=== PATIENT | female | born 1980 | race American Indian/Alaskan Native ===

== ENCOUNTER 2018-05-30 00:01 | Observation (INO) | payer OTHER ==
[2018-05-30 00:07] VITALS: BMI 31.9
--- NOTE | 2018-05-30 01:03 | ED PDOC ---
Arrival/HPI - General Historian: Patient - History of Present Illness Narrative History of Present Illness (Text): 05/30/18 01:37 37 y/o female with PMH of ovarian cysts, lap yady with stent placed presents to the ED with diffuse abdominal pain x6 days. Pain is sharp, 8/10, no radiation, no alleviating or worsening factors. Patient admits to one episode of non blood vomiting today and nausea. She reports not having bowel movement for 5 days in the setting of chronic constipation. She denied hematemesis, hematochezia, melena, fever, chills. Patient's menstrual period started today but denied any urinary symptoms. She denied chest pain, SOB, palpitations, muscle weaknes. Time/Duration: < week Symptom Onset: Gradual Symptom Course: Worsening Severity Level: 7 Context: Home <Eduard Shaw - Last Filed: 05/30/18 06:58> <Alejandro Quispe - Last Filed: 05/30/18 07:09> - General Chief Complaint: Abdominal Pain Time Seen by Provider: 05/30/18 00:24 Past Medical History - Provider Review Nursing Documentation Reviewed: Yes - Gastrointestinal Hx Gall Bladder Disease: Yes - Genitourinary/Gynecological Other/Comment: uterine fibroids and cysts - Psychiatric Hx Substance Use: No - Surgical History Hx Cholecystectomy: Yes - Anesthesia Hx Anesthesia: Yes Hx Anesthesia Reactions: No <Eduard Shaw - Last Filed: 05/30/18 06:58> Family/Social History - Physician Review Nursing Documentation Reviewed: Yes Family/Social History: No Known Family HX Smoking Status: Unknown If Ever Smoked Hx Alcohol Use: No Hx Substance Use: No <Eduard Shaw - Last Filed: 05/30/18 06:58> Allergies/Home Meds <Eduard Shaw - Last Filed: 05/30/18 06:58> <Alejandro Quispe - Last Filed: 05/30/18 07:09> Allergies/Adverse Reactions: Allergies No Known Allergies Allergy (Verified 05/30/18 00:07) Review of Systems - Review of Systems Constitutional: Normal Eyes: Normal ENT: Normal Respiratory: Normal. absent: SOB, Cough Cardiovascular: Normal Gastrointestinal: Normal, Abdominal Pain, Constipation, Nausea, Vomiting. absent: Diarrhea, Hematochezia, Hematemesis Genitourinary Female: Vaginal Bleeding (currently menstruating) Musculoskeletal: Normal Skin: Normal Neurological: Normal Endocrine: Normal Hemo/Lymphatic: Normal Psychiatric: Normal <Eduard Shaw - Last Filed: 05/30/18 06:58> Physical Exam Vital Signs Reviewed: Yes Vital Signs Temp Pulse Resp BP Pulse Ox 05/30/18 00:26 98.6 F 108 H 18 151/94 H 98 Temperature: Afebrile Blood Pressure: Hypertensive Pulse: Tachycardic Respiratory Rate: Normal Appearance: Positive for: Uncomfortable Pain Distress: Moderate Mental Status: Positive for: Alert and Oriented X 3 - Systems Exam Head: Present: Atraumatic, Normocephalic Pupils: Present: PERRL Extroacular Muscles: Present: EOMI Conjunctiva: Present: Normal Ears: Present: Normal Mouth: Present: Dry Pharnyx: Present: Normal Nose (Internal): Present: Normal Inspection Neck: Present: Normal Range of Motion Respiratory/Chest: Present: Clear to Auscultation, Good Air Exchange. No: Respiratory Distress, Wheezes, Rhonchi Cardiovascular: Present: Regular Rate and Rhythm, Normal S1, S2. No: Murmurs, Rub, Gallop Abdomen: Present: Tenderness, Distention, Guarding. No: Peritoneal Signs Upper Extremity: Present: Normal Inspection. No: Cyanosis, Edema Lower Extremity: Present: Normal Inspection. No: Edema Neurological: Present: GCS=15, CN II-XII Intact, Speech Normal Skin: Present: Warm, Normal Color. No: Rashes Psychiatric: Present: Alert, Oriented x 3, Anxious <Eduard Shaw - Last Filed: 05/30/18 06:58> Vital Signs Temp Pulse Resp BP Pulse Ox 05/30/18 00:26 98.6 F 108 H 18 151/94 H 98 <Alejandro Quispe - Last Filed: 05/30/18 07:09> Medical Decision Making ED Course and Treatment: Impression: Pt seen and evaluated with veterinary medical officer. Aware and agree with HPI, clinical findings, plan, and management. Pt, whose past medical history includes cholelithiasis, presented for upper abdominal pain. Plan: -- CT Abdomen and Pelvis -- EKG -- Labs, cardiac enzymes, lipase -- IV fluids -- Zofran -- Pepcid -- Toradol -- Reassess and disposition 05/30/18 07:08 Case endorsed to /pending response to treatment/reassess/final disposition - RAD Interpretation Radiology Orders: 05/30/18 01:09 ABDOMEN & PELVIS [ABD & PELVIS IV CONTRAST ONLY] [CT] Stat 05/30/18 01:41 ABD & PELVIS IV CONTRAST ONLY [CT] Stat - Medication Orders Current Medication Orders: Sodium Chloride (Sodium Chloride 0.9%) 1,000 mls @ 100 mls/hr IV .Q10H ONE Stop: 05/30/18 11:04 Discontinued Medications Ketorolac Tromethamine (Toradol) 30 mg IVP STAT STA Stop: 05/30/18 01:42 Metoclopramide HCl (Reglan) 10 mg IVP STAT STA Stop: 05/30/18 01:44 <Alejandro Quispe - Last Filed: 05/30/18 07:09> - PA / / Resident Statement MICHAEL has reviewed & agrees with the documentation as recorded. / has examined the patient and agrees with the treatment plan. <Alejandro Quispe - Last Filed: 05/30/18 07:09> Disposition/Present on Arrival - Present on Arrival Any Indicators Present on Arrival: No History of DVT/PE: No History of Uncontrolled Diabetes: No Urinary Catheter: No History of Decub. Ulcer: No History Surgical Site Infection Following: None - Disposition Have Diagnosis and Disposition been Completed?: Yes Patient Plan: Discharge <Eduard Shaw - Last Filed: 05/30/18 06:58> - Present on Arrival Any Indicators Present on Arrival: No - Disposition Have Diagnosis and Disposition been Completed?: No Disposition Time: 07:08 <Alejandro Quispe - Last Filed: 05/30/18 07:09> - Disposition Diagnosis: Chronic constipation, Abdominal pain Disposition: HOME/ ROUTINE Patient Problems: Current Active Problems Problem Status Onset Chronic constipation Acute Condition: STABLE Discharge Instructions (ExitCare): High Fiber Diet, Constipation, Adult (DC) Referrals: Janusz Chaudhari MD [Primary Care Provider] - Follow up with primary Forms: [employer] (Lebanese)
[2018-05-30] MEDS ORDERED: Sodium Chloride 0.9% 1,000 ML IV ONE (01:05)
[2018-05-30 01:56] LABS: URINE BILIRUBIN NEGATIVE (NEGATIVE); URINE BLOOD LARGE (NEGATIVE); URINE GLUCOSE (UA) NEGATIVE (NEGATIVE); URINE LEUKOCYTE ESTERASE NEGATIVE Leu/uL (NEGATIVE); URINE PROTEIN TRACE mg/dL (<30 mg/dL); URINE UROBILINOGEN 0.2 E.U./dL (<1 E.U./dL)
[2018-05-30 01:57] LABS: BASO # 0.02 K/mm3 (0.0-2.0); BASO % 0.2 % (0.0-3.0); EOS # 0.2 (0.0-0.7); EOS % 1.9 % (1.5-5.0); HEMOGLOBIN 13.3 g/dL (12.0-16.0); LYMPH # 2.5 (1.2-3.4); LYMPH % 24.9 % (22.0-35.0); MEAN CELL VOLUME 81.5 fl (80.0-105.0); MEAN CORPUSCULAR HEMOGLOBIN 27.3 pg (25.0-35.0); MEAN CORPUSCULAR HGB CONC 33.5 g/dl (31.0-37.0); MEAN PLATELET VOLUME 11.5 fl (7.0-11.0); MONO % 9.9 % (1.0-6.0); RBC 4.87 10^6/uL (3.5-6.1); RED CELL DISTRIBUTION WIDTH 16.8 % (11.5-14.5); WHITE BLOOD COUNT 9.9 10^3/uL (4.5-11.0)
[2018-05-30 02:06] LABS: URINE APPEARANCE CLOUDY (CLEAR); URINE COLOR DARK YELLOW (YELLOW)
[2018-05-30 02:11] LABS: URINE RBC TNTC /hpf (0-2)
[2018-05-30 02:12] LABS: URINE BACTERIA LARGE /hpf
[2018-05-30 03:11] LABS: ALB/GLOB RATIO 1.2 (1.1-1.8); ALBUMIN 4.5 g/dL (3.0-4.8); ALT/SGPT 40 U/L (7-56); AST/SGOT 32 U/L (14-36); BLOOD UREA NITROGEN 13 mg/dL (7-21); CALCIUM 9.6 mg/dL (8.4-10.5); GFR NON-AFRICAN AMERICAN > 60; LIPASE 275 U/L (23-300)
[2018-05-30] MEDS ORDERED: Iohexol 350 MG/100 ML VIAL ONE (03:19)
[2018-05-30] MEDS ORDERED: Morphine 2 mg/ml ISec IVP STA ×2 (03:59→09:26)
--- NOTE | 2018-05-30 07:16 | ED PDOC ---
Physical Exam Vital Signs Temp Pulse Resp BP Pulse Ox 05/30/18 00:26 98.6 F 108 H 18 151/94 H 98 Temperature: Afebrile Blood Pressure: Hypertensive Pulse: Tachycardic Respiratory Rate: Normal Appearance: Positive for: Non-Toxic, Other (abdominal pain) Pain Distress: Mild Mental Status: Positive for: Alert and Oriented X 3 - Systems Exam Head: Present: Atraumatic Pupils: Present: PERRL Extroacular Muscles: Present: EOMI Conjunctiva: Present: Normal Mouth: Present: Moist Mucous Membranes Nose (External): Present: Atraumatic Neck: Present: Normal Range of Motion Respiratory/Chest: Present: Clear to Auscultation Cardiovascular: Present: Tachycardic Abdomen: Present: Tenderness (diffuse). No: Peritoneal Signs, Rebound, Guarding, McBurney's Point Tender, Hernias Back: Present: Normal Inspection. No: CVA Tenderness Upper Extremity: Present: Normal Inspection Lower Extremity: Present: Normal Inspection Neurological: Present: GCS=15, Speech Normal, Gait Normal Skin: Present: Warm, Dry. No: Rashes Psychiatric: Present: Alert, Oriented x 3 Medical Decision Making ED Course and Treatment: 05/30/18 07:00 Case endorsed to me by Dr. Quispe, pending response to treatment, re- evaluation, and disposition. 05/30/18 08:07 On re-evaluation, pt with continued abdominal tenderness. No perionteal signs. Case discussed with Dr. Burgos, hospitalist, who is aware and agrees with plan. Accepts pt in to hospitalist service. Pt will go to [facility] observation for intractable abdominal pain. - Lab Interpretations Lab Results: Total Bilirubin 0.5 mg/dL (0.2-1.3) 05/30/18 02:45 AST 32 U/L (14-36) 05/30/18 02:45 ALT 40 U/L (7-56) 05/30/18 02:45 Alkaline Phosphatase 103 U/L (38-126) 05/30/18 02:45 Total Protein 8.1 g/dL (5.8-8.3) 05/30/18 02:45 Albumin 4.5 g/dL (3.0-4.8) 05/30/18 02:45 Globulin 3.6 gm/dL 05/30/18 02:45 Albumin/Globulin Ratio 1.2 (1.1-1.8) 05/30/18 02:45 Lipase 275 U/L (23-300) 05/30/18 02:45 Urine Color Dark yellow (YELLOW) 05/30/18 01:30 Urine Appearance Cloudy (CLEAR) 05/30/18 01:30 Urine pH 6.0 (4.7-8.0) 05/30/18 01:30 Ur Specific [place] 1.025 (1.005-1.035) 05/30/18 01:30 Urine Protein Trace mg/dL (<30 mg/dL) H 05/30/18 01:30 Urine Glucose (UA) Negative mg/dL (NEGATIVE) 05/30/18 01:30 Urine Ketones Negative mg/dL (NEGATIVE) 05/30/18 01:30 Urine Blood Large (NEGATIVE) H 05/30/18 01:30 Urine Nitrate Negative (NEGATIVE) 05/30/18 01:30 Urine Bilirubin Negative (NEGATIVE) 05/30/18 01:30 Urine Urobilinogen 0.2 E.U./dL (<1 E.U./dL) 05/30/18 01:30 Ur Leukocyte Esterase Negative Nell/uL (NEGATIVE) 05/30/18 01:30 Urine RBC Tntc /hpf (0-2) H 05/30/18 01:30 Urine WBC None /hpf (0-6) 05/30/18 01:30 Ur Epithelial Cells 6 - 8 /hpf (0-5) H 05/30/18 01:30 Urine Bacteria Large /hpf (NONE) 05/30/18 01:30 Urine Other Mucus /hpf 05/30/18 01:30 - RAD Interpretation Radiology Orders: 05/30/18 01:09 ABDOMEN & PELVIS [ABD & PELVIS IV CONTRAST ONLY] [CT] Stat - Medication Orders Current Medication Orders: Sodium Chloride (Sodium Chloride 0.9%) 1,000 mls @ 100 mls/hr IV .Q10H ONE Stop: 05/30/18 11:04 Last Admin: 05/30/18 02:05 Dose: 100 mls/hr eMAR Start Stop Document 05/30/18 02:05 RE (Rec: 05/30/18 02:06 RE [id number]) Intravenous Solution Start Date 05/30/18 Start Time 02:06 Discontinued Medications Ketorolac Tromethamine (Toradol) 30 mg IVP STAT STA Stop: 05/30/18 01:42 Last Admin: 05/30/18 01:58 Dose: 30 mg MAR Pain Assessment Document 05/30/18 01:58 RE (Rec: 05/30/18 01:59 [id number] Pain Reassessment Is this a pain reassessment? No Sleep Is patient sleeping during reassessment? No Presence of Pain Presence of Pain Yes IVP Administration Document 05/30/18 01:58 RE (Rec: 05/30/18 01:59 RE [id number]) Charges for Administration # of IVP Administrations 1 Lactulose (Enulose) 20 gm PO ONCE STA Stop: 05/30/18 07:01 Last Admin: 05/30/18 07:14 Dose: 20 gm Metoclopramide HCl (Reglan) 10 mg IVP STAT STA Stop: 05/30/18 01:44 Last Admin: 05/30/18 01:59 Dose: 10 mg IVP Administration Document 05/30/18 01:59 RE (Rec: 05/30/18 01:59 [id number]) Charges for Administration # of IVP Administrations 1 Morphine Sulfate (Morphine) 2 mg IVP STAT STA Stop: 05/30/18 04:00 Last Admin: 05/30/18 04:18 Dose: 2 mg MAR Pain Assessment Document 05/30/18 04:18 RE (Rec: 05/30/18 04:18 [id number] Pain Reassessment Is this a pain reassessment? No Sleep Is patient sleeping during reassessment? No Presence of Pain Presence of Pain Yes Pain Scale Used Protocol: PSCALES Pain Scale Used Numeric IVP Administration Document 05/30/18 04:18 RE (Rec: 05/30/18 04:18 [id number]) Charges for Administration # of IVP Administrations 1 Sodium Phosphate (Fleet Enema) 135 ml RC STAT STA Stop: 05/30/18 06:13 Last Admin: 05/30/18 07:14 Dose: 135 ml Disposition/Present on Arrival - Present on Arrival Any Indicators Present on Arrival: No History of DVT/PE: No History of Uncontrolled Diabetes: No Urinary Catheter: No History of Decub. Ulcer: No History Surgical Site Infection Following: None - Disposition Have Diagnosis and Disposition been Completed?: Yes Diagnosis: Chronic constipation, Abdominal pain Disposition Time: 08:22 Patient Problems: Current Active Problems Problem Status Onset Chronic constipation Acute Abdominal pain Acute Condition: STABLE Referrals: Janusz Chaudhari MD [Primary Care Provider] - Follow up with primary Forms: [employer] (Setswana)
--- NOTE | 2018-05-30 09:18 | CP.PCM.HP ---
<DonnieAleyda - Last Filed: 05/30/18 14:32> History of Present Illness - History of Present Illness History of Present Illness: PGY-[address] Burgos Ms Mancera, 37F, , PMH of chronic constipation, Hx gallstone cholangitis s/p lap yady with stent placement (apr 2017, [facility]), Hx ovarian cysts/fibroid s/p cyst removal (2016), presents to the ED with diffuse abdominal pain since last night. Pain is sharp, 8/10, diffuse, most at epigastric, no radiation, no alleviating or worsening factors, associated with nausea and vomiting. Patient vomited x 6 last night and nausea with vomit x 1 today. She had no bowel movement x 5 days in the setting of chronic constipation. Cannot tolerate PO in take since last night. No change in diet. No sick contact. Pain not related to food/position ROS - (+) chills. Denies passing flatus. Denies Fever, TOMLIN, dizziness, chest pain, SOB, palpitations, muscle weaknes, hematemesis, hematochezia, melena, dysuria. PMH chronic constipation Hx gallstone cholangitis Uterine fibroid Hx Ovarian cyst s/p removal obesity PSH lap yady with CBD stent placement due to gallstone cholangitis. Apr 2017. Never followed up becasue she was too busy No prior colonoscopy Last EGD, Apr 2017 Hysteroscopy for ovarian cyst removal, 2016 OBGYN Sexually active, 1 month ago, with same partner LMP 05/30/2018 Denies hx STD. FH DM. Maternal grandmother - ? pancreatic cancer SH live with mom, independent ambulation. Denies ever smoke/drink/drugs. 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 HR 108. 151/94. RR 18. 98%RA CBC unremarkable. CMP unremarkable. BUN/Cre 13/0.7. AST/ALT/AP: 32/40/103 U/A: Epithelial cell 6-8. WBC none. LE/N/ neg EKG: NSR at [address]-segment elevations or depressions, no T-wave inversions, normal intervals. CT A/P with IV: Uncomplicated colonic diverticulosis. Fecal retention. CBD in place. Mildly dilated extrahepatic biliary tree. Mild pneumobilia. Uterine fibroid Toradol x 1, morphine 2mg, 1mg Lactulose x 1, fleet enema Reglan x 1 Present on Admission - Present on Admission Any Indicators Present on Admission: No Past Patient History - Past Social History Smoking Status: Unknown If Ever Smoked - GASTROINTESTINAL Hx Gall Bladder Disease: Yes - GENITOURINARY/GYNECOLOGICAL Other/Comment: uterine fibroids and cysts - PSYCHIATRIC Hx Substance Use: No - SURGICAL HISTORY Hx Cholecystectomy: Yes - ANESTHESIA Hx Anesthesia: Yes Hx Anesthesia Reactions: No Meds Home Medications: Home Medication List Medication Instructions Recorded Confirmed Type Docusate [Colace] 100 mg PO DAILY #14 cap 05/31/18 Rx Polyethylene Glycol 3350 [Miralax] 17 gm PO DAILY #1 bottle 05/31/18 Rx Allergies/Adverse Reactions: Allergies Allergy/AdvReac Type Severity Reaction Status Date / Time No Known Allergies Allergy Verified 05/30/18 14:07 Physical Exam - Constitutional Appears: In Acute Distress, Other (teary and crying) - Head Exam Head Exam: ATRAUMATIC, NORMAL INSPECTION, NORMOCEPHALIC - Eye Exam Eye Exam: EOMI, Normal appearance, PERRL. absent: Scleral icterus Pupil Exam: NORMAL ACCOMODATION - ENT Exam ENT Exam: Mucous Membranes Moist - Neck Exam Additional comments: supple - Respiratory Exam Respiratory Exam: Clear to Auscultation Bilateral. absent: Decreased Breath Sounds, Rales, Rhonchi, Wheezes - Cardiovascular Exam Cardiovascular Exam: REGULAR RHYTHM, +S1, +S2. absent: Systolic Murmur - GI/Abdominal Exam GI & Abdominal Exam: Diminished Bowel Sounds, Guarding, Hypoactive Bowel Sounds, Soft, Tenderness (10/10 epigastric, remainder of quadrants is 6/10). absent: Distended, Firm, Rebound, Rigid Additional comments: (+) suprapubic tenderness - Rectal Exam Rectal Exam: Hemorrhoids (internal hemorroid posterior wall) Additional comments: Normal tone Did not feel any stool 8cm into rectal vault - Extremities Exam Extremities exam: Positive for: normal capillary refill, pedal pulses present. Negative for: calf tenderness, pedal edema - Back Exam Back exam: absent: CVA tenderness (L), CVA tenderness (R) - Neurological Exam Neurological exam: Alert, CN II-XII Intact, Oriented x3 - Psychiatric Exam Psychiatric exam: Normal Affect, Normal Mood - Skin Skin Exam: Dry, Warm Results - Vital Signs Recent Vital Signs: Last Vital Signs Temp 98.6 F 05/30/18 00:26 Pulse 108 H 05/30/18 00:26 Resp 18 05/30/18 00:26 BP 151/94 H 05/30/18 00:26 Pulse Ox 98 05/30/18 00:26 - Labs Result Diagrams: 05/30/18 00:24 05/30/18 02:45 Labs: Laboratory Results - last 24 hr 05/30/18 05/30/18 05/30/18 00:24 01:30 02:45 WBC 9.9 RBC 4.87 Hgb 13.3 Hct 39.7 MCV 81.5 MCH 27.3 MCHC 33.5 RDW 16.8 H Plt Count 231 MPV 11.5 H Neut % (Auto) 63.1 Lymph % (Auto) 24.9 [place] % (Auto) 9.9 H Eos % (Auto) 1.9 Baso % (Auto) 0.2 Lymph # (Auto) 2.5 [place] # (Auto) 1.0 H Eos # (Auto) 0.2 Baso # (Auto) 0.02 Absolute Neuts (auto) 6.21 Sodium 142 Potassium 4.5 Chloride 108 H Carbon Dioxide 27 Anion Gap 12 BUN 13 Creatinine 0.7 Est GFR ( Amer) > 60 Est GFR (Non-Af Amer) > 60 Random Glucose 87 Calcium 9.6 Phosphorus 4.2 Magnesium 1.9 Total Bilirubin 0.5 AST 32 ALT 40 Alkaline Phosphatase 103 Total Protein 8.1 Albumin 4.5 Globulin 3.6 Albumin/Globulin Ratio 1.2 Lipase 275 Urine Color Dark yellow Urine Appearance Cloudy Urine pH 6.0 Ur Specific [place] 1.025 Urine Protein Trace H Urine Glucose (UA) Negative Urine Ketones Negative Urine Blood Large H Urine Nitrate Negative Urine Bilirubin Negative Urine Urobilinogen 0.2 Ur Leukocyte Esterase Negative Urine RBC Tntc H Urine WBC None Ur Epithelial Cells 6 - 8 H Urine Bacteria Large Urine Other Mucus Assessment & Plan - Assessment and Plan (Free Text) Plan: Ms Mancera, 37F, , PMH of chronic constipation, Hx gallstone cholangitis s/p lap yady with stent placement 13 month ago without any follow up, and hx hyst erscopy for ovarian cyst removal (2017) came in for diffuse abdominal pain worse at epigastric with chills. ED course significant for sinus tachycardia @ HR 108. CBC/CMP unremarkable. EKG normal. CT A/P with IV: Uncomplicated colonic diverticulosis. Fecal retention. CBD in place. Mildly dilated extrahepatic biliary tree. Mild pneumobilia. Uterine fibroid Intractable abdominal pain cannot tolerate PO Questionable ileus vs fecal impaction Doubt CBD infection. Doubt UTI/pyelonephritis. Doubt PID/uterine fibroid as cause of pain. Had ruled out ischemic bowel (normal LDH) - NPO, NS@100 - morphine 1q 3 prn, with goal to taper - zofran PRN for Nausea / vomiting - GI consult Mildly dilated extrahepatic biliary tree. 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 counselors on low fat high fiber diet Obesity BMI 32 - heart health lifestyle counseling Protonix IV daily for GI prophyalix DVT prophylasix - SCD/stocking s/r/d/w Dr Burgos <Jack Burgos - Last Filed: 06/01/18 11:27> Results - Vital Signs Recent Vital Signs: Last Vital Signs Temp 98.6 F 05/31/18 14:00 Pulse 69 05/31/18 14:00 Resp 20 05/31/18 14:00 BP 117/81 05/31/18 14:00 Pulse Ox 99 05/31/18 14:00 - Labs Result Diagrams: 05/31/18 07:00 05/31/18 07:00 Labs: Laboratory Results - last 24 hr 05/31/18 12:30 Free T4 1.38 TSH 3rd Generation 0.42 L Attending/Attestation - Attestation I have personally seen and examined this patient.: Yes I have fully participated in the care of the patient.: Yes I have reviewed all pertinent clinical information: Yes Notes (Text): 06/01/18 11:24 Medical record note made by the resident after discussion with my direction and input after the patient was personally seen and examined by me. I have reviewed the chart and agree that the record accurately reflects by personal performance of the history, physical exam, data review, and medical decision-making, in the course for the patient. I have also personally directed the plan of care. 37 years old female with PMH of chronic constipation, Hx gallstone cholangitis s/p lap yady with stent placement 13 month ago without any follow up, and hx hysterscopy for ovarian cyst removal (2016) came in for diffuse abdominal pain . CT Abdomen and Pelvis showed colonic diverticulosis. Fecal retention. CBD in place. Mildly dilated extrahepatic biliary tree. Mild pneumobilia. Uterine fibroid. LFT are normal.Etiology of pain is due to fecal impaction.We will start patient on Enema and laxative.We will get GI consultation.We will also check TSH level. 06/01/18 11:26
--- NOTE | 2018-05-30 09:40 | CT ---
Date of service: 05/30/2018 PROCEDURE: CT Abdomen and Pelvis with contrast HISTORY: abdominal pain COMPARISON: None. TECHNIQUE: Contrast dose: 100 cc of Omni 350 Radiation dose: Total exam DLP = 807.63 mGy-cm. This CT exam was performed using one or more of the following dose reduction techniques: Automated exposure control, adjustment of the mA and/or kV according to patient size, and/or use of iterative reconstruction technique. FINDINGS: LOWER THORAX: Unremarkable. LIVER: Unremarkable. No gross lesion or ductal dilatation. GALLBLADDER AND BILE DUCTS: Gallbladder removed. There is a stent in the common duct. There is mild intrahepatic ductal dilatation. PANCREAS: Unremarkable. No gross lesion or ductal dilatation. SPLEEN: Unremarkable. ADRENALS: Unremarkable. No mass. KIDNEYS AND URETERS: Unremarkable. No hydronephrosis. No solid mass. VASCULATURE: Unremarkable. No aortic aneurysm. No aortic atherosclerotic calcification or mural plaque present. BOWEL: Unremarkable. No obstruction. No gross mural thickening. APPENDIX: Normal appendix. PERITONEUM: Unremarkable. No free fluid. No free air. LYMPH NODES: Unremarkable. No enlarged lymph nodes. BLADDER: Unremarkable. REPRODUCTIVE: Unremarkable. BONES: No acute fracture. OTHER FINDINGS: The report concurs with the preliminary [facility] report IMPRESSION: No acute intra-abdominal findings
[2018-05-30 11:28] LABS: TROPONIN I < 0.01 ng/mL
[2018-05-30] MEDS: Morphine 2 mg/ml ISec IVP PRN (13:12)
[2018-05-30] MEDS ORDERED: HYDROmorphone 0.5 mg/0.5 ml ISec IVP STA ×2 (14:26→20:26)
[2018-05-30] MEDS ORDERED: Influenza Vaccine 60 mcg/0.5 mL SYR (4YR UP) IM ONE (14:41)
[2018-05-30] MEDS ORDERED: Pneumococcal 23-Valent Vaccine IM ONE (14:41)
--- NOTE | 2018-05-30 14:59 | CP.PCM.CON ---
History of Present Illness - History of Present Illness History of Present Illness: Surgery Consult Note for Dr. Maldonado Patient is a 37 yo female w/ PMH of chronic constipation, Hx gallstone cholangitis s/p lap yady with stent placement (apr 2017, [facility]), Hx ovarian cysts/fibroid s/p cyst removal admitted for abdominal pain. Patient currently on menstrual period. Admits to epigastric pain that radiates backwards, described as sharp in nature, rated a 10/10, not relieved by morphine given in ED. Patient states the pain started suddenly yesterday with multiple episodes of nausea/vomiting. Admits to chills but denies fevers. Patient states she never followed up for stent removal due to her busy life. During interview, patient was in severe pain and requested dilaudid multiple times. Patient has not had a bowel movement for 5 days. Patient states this is abnormal for her and denies taking any pain medicines including narcotics and NSAIDs. Denies fevers, cp, sob, dysuria. PMH: chronic constipation, Hx gallstone cholangitis, Uterine fibroid, Hx Ovarian cyst s/p removal, obesity PSH: lap yady with CBD stent placement due to gallstone cholangitis. Apr 2017. Never followed up becasue she was too busy, No prior colonoscopy, Last EGD, Apr 2017, Hysteroscopy for ovarian cyst removal, 2016 OBGYN: Sexually active, 1 month ago, with same partner, LMP 05/30/2018, Denies hx STD. FH: DM SH: live with mom, independent ambulation. Denies ever smoke/drink/drugs. 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 ALL: NKDA Med: None Review of Systems - Review of Systems All systems: reviewed and no additional remarkable complaints except Review of Systems: HPI Past Patient History - Past Social History Smoking Status: Unknown If Ever Smoked - CARDIAC Hx Cardiac Disorders: No - PULMONARY Hx Respiratory Disorders: No - NEUROLOGICAL Hx Neurological Disorder: No - HEENT Hx HEENT Problems: No - RENAL Hx Chronic Kidney Disease: No - ENDOCRINE/METABOLIC Hx Endocrine Disorders: No - HEMATOLOGICAL/ONCOLOGICAL Hx Blood Disorders: No - INTEGUMENTARY Hx Dermatological Problems: No - MUSCULOSKELETAL/RHEUMATOLOGICAL Hx Musculoskeletal Disorders: No Hx Falls: No - GASTROINTESTINAL Hx Gall Bladder Disease: Yes - GENITOURINARY/GYNECOLOGICAL Other/Comment: uterine fibroids and cysts - PSYCHIATRIC Hx Substance Use: No - SURGICAL HISTORY Hx Cholecystectomy: Yes - ANESTHESIA Hx Anesthesia: Yes Hx Anesthesia Reactions: No Meds Allergies/Adverse Reactions: Allergies Allergy/AdvReac Type Severity Reaction Status Date / Time No Known Allergies Allergy Verified 05/30/18 14:07 - Medications Medications: Current Medications Morphine Sulfate (Morphine) 1 mg IVP Q3H PRN PRN Reason: Pain, severe (8-10) Ondansetron HCl (Zofran Inj) 4 mg IVP Q6H PRN PRN Reason: Nausea/Vomiting Pantoprazole Sodium (Protonix Inj) 40 mg IVP DAILY EMERITA Physical Exam - Constitutional Appears: In Acute Distress - Head Exam Head Exam: NORMAL INSPECTION, NORMOCEPHALIC - Eye Exam Eye Exam: EOMI, Normal appearance. absent: Nystagmus, Scleral icterus - ENT Exam ENT Exam: Mucous Membranes Moist - Respiratory Exam Respiratory Exam: Clear to Auscultation Bilateral, NORMAL BREATHING PATTERN. absent: Rales, Rhonchi, Wheezes - Cardiovascular Exam Cardiovascular Exam: Tachycardia, REGULAR RHYTHM, +S1, +S2 - GI/Abdominal Exam Additional comments: deferred as patient stated do not touch my stomach 2/2 to severe abdominal pain - Extremities Exam Extremities exam: Positive for: normal inspection. Negative for: calf tenderness, pedal edema - Neurological Exam Neurological exam: Alert, Oriented x3 - Psychiatric Exam Psychiatric exam: Agitated, Anxious - Skin Skin Exam: Intact, Normal Color Results - Vital Signs Recent Vital Signs: Last Vital Signs Temp 98.3 F 05/30/18 09:57 Pulse 67 05/30/18 09:56 Resp 17 05/30/18 14:13 BP 127/77 05/30/18 09:56 Pulse Ox 100 05/30/18 09:56 - Labs Result Diagrams: 05/30/18 00:24 05/30/18 02:45 Labs: Laboratory Results - last 24 hr 05/30/18 05/30/18 05/30/18 00:24 01:30 02:45 WBC 9.9 RBC 4.87 Hgb 13.3 Hct 39.7 MCV 81.5 MCH 27.3 MCHC 33.5 RDW 16.8 H Plt Count 231 MPV 11.5 H Neut % (Auto) 63.1 Lymph % (Auto) 24.9 [place] % (Auto) 9.9 H Eos % (Auto) 1.9 Baso % (Auto) 0.2 Lymph # (Auto) 2.5 [place] # (Auto) 1.0 H Eos # (Auto) 0.2 Baso # (Auto) 0.02 Absolute Neuts (auto) 6.21 Sodium 142 Potassium 4.5 Chloride 108 H Carbon Dioxide 27 Anion Gap 12 BUN 13 Creatinine 0.7 Est GFR ( Amer) > 60 Est GFR (Non-Af Amer) > 60 Random Glucose 87 Calcium 9.6 Phosphorus 4.2 Magnesium 1.9 Total Bilirubin 0.5 AST 32 ALT 40 Alkaline Phosphatase 103 Lactate Dehydrogenase 520 Total Creatine Kinase 76 Troponin I < 0.01 Total Protein 8.1 Albumin 4.5 Globulin 3.6 Albumin/Globulin Ratio 1.2 Lipase 275 Urine Color Dark yellow Urine Appearance Cloudy Urine pH 6.0 Ur Specific [place] 1.025 Urine Protein Trace H Urine Glucose (UA) Negative Urine Ketones Negative Urine Blood Large H Urine Nitrate Negative Urine Bilirubin Negative Urine Urobilinogen 0.2 Ur Leukocyte Esterase Negative Urine RBC Tntc H Urine WBC None Ur Epithelial Cells 6 - 8 H Urine Bacteria Large Urine Other Mucus Assessment & Plan - Assessment and Plan (Free Text) Assessment: 37 yo F admitted for abdominal pain. CT scan showed no active issues Plan: Pain Control (according to nursing patient may possibly be a pain seeker) Nausea Control Continue aggressive toilet for constipation Recommend NPO due to nausea and pain No surgical intervention warranted at this time Further recs as per Dr. Maldonado PGY-1 Rin Mendoza
--- NOTE | 2018-05-30 17:35 | CP.PCM.CON ---
<Karol Scott - Last Filed: 05/31/18 08:13> History of Present Illness - History of Present Illness History of Present Illness: PGY5 Initial GI Consult Sebastian Mancera is a 37F w/ hx of Lap yady, Choledocolithiaisis s/p ERCP and biliary stent, Hx ovarian cysts/fibroid s/p cyst removal (2016) who presents to the ER with complaints of abd pain. Pt was not cooperative, so history was limited to chart, resident, and RN. She had her gallbladder removed and cbd stent placed in Apr 2017. She notes that she was too busy to follow-up with GI for stent removal. She presented to [facility] w/ 10 out of 10 pain, diffuse, most at epigastric, no radiation, no alleviating or worsening factors, associated with nausea and vomiting. Patient vomited x 6 last night and nausea with vomit x 1 today. She had no bowel movement x 5 days in the setting of chronic constipation. CT abd revealed mod/sev amounts of stool in her colon especially the right side. She has been receiving morphine and dilaudid for her pain in the hospital. After lactulose and x2 enema, pt only had a small BM. PMHx:chronic constipation, Hx gallstone cholangitis, Uterine fibroid, Hx Ovarian cyst s/p removal obesity PSH: lap yady with CBD stent placement due to gallstone cholangitis. Apr 2017. Never followed up becasue she was too busy, Last EGD, Apr 2017, Hysteroscopy for ovarian cyst removal, 2016 FH: DM. Maternal grandmother - ? pancreatic cancer SH: live with mom, independent ambulation. Denies ever smoke/drink/drugs. 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 ROS: 12 point ROS conducted, neg other than above Past Patient History - Past Social History Smoking Status: Unknown If Ever Smoked - CARDIAC Hx Cardiac Disorders: No - PULMONARY Hx Respiratory Disorders: No - NEUROLOGICAL Hx Neurological Disorder: No - HEENT Hx HEENT Problems: No - RENAL Hx Chronic Kidney Disease: No - ENDOCRINE/METABOLIC Hx Endocrine Disorders: No - HEMATOLOGICAL/ONCOLOGICAL Hx Blood Disorders: No - INTEGUMENTARY Hx Dermatological Problems: No - MUSCULOSKELETAL/RHEUMATOLOGICAL Hx Musculoskeletal Disorders: No Hx Falls: No - GASTROINTESTINAL Hx Gall Bladder Disease: Yes - GENITOURINARY/GYNECOLOGICAL Other/Comment: uterine fibroids and cysts - PSYCHIATRIC Hx Substance Use: No - SURGICAL HISTORY Hx Cholecystectomy: Yes - ANESTHESIA Hx Anesthesia: Yes Hx Anesthesia Reactions: No Meds Allergies/Adverse Reactions: Allergies Allergy/AdvReac Type Severity Reaction Status Date / Time No Known Allergies Allergy Verified 05/30/18 14:07 - Medications Medications: Current Medications Morphine Sulfate (Morphine) 1 mg IVP Q3H PRN PRN Reason: Pain, severe (8-10) Ondansetron HCl (Zofran Inj) 4 mg IVP Q6H PRN PRN Reason: Nausea/Vomiting Pantoprazole Sodium (Protonix Inj) 40 mg IVP DAILY EMERITA Physical Exam - Constitutional Appears: In Acute Distress - Head Exam Head Exam: ATRAUMATIC, NORMOCEPHALIC - Eye Exam Eye Exam: Normal appearance - ENT Exam ENT Exam: Mucous Membranes Moist, Normal Exam - Neck Exam Neck exam: Positive for: Normal Inspection - Respiratory Exam Respiratory Exam: Clear to Auscultation Bilateral, NORMAL BREATHING PATTERN. absent: Rales, Rhonchi, Wheezes, Respiratory Distress, Stridor - Cardiovascular Exam Cardiovascular Exam: REGULAR RHYTHM, +S1, +S2 - GI/Abdominal Exam GI & Abdominal Exam: Normal Bowel Sounds, Soft. absent: Diminished Bowel Sounds, Distended, Firm, Guarding, Hernia, Organomegaly, Pulsatile Mass, Rebound, Rigid - Extremities Exam Extremities exam: Positive for: normal inspection - Neurological Exam Neurological exam: Alert, Oriented x3 - Psychiatric Exam Psychiatric exam: Normal Affect, Normal Mood - Skin Skin Exam: Dry, Intact, Normal Color, Warm Results - Vital Signs Recent Vital Signs: Last Vital Signs Temp 98.5 F 05/30/18 14:00 Pulse 87 05/30/18 14:00 Resp 17 05/30/18 14:13 BP 135/97 H 05/30/18 14:00 Pulse Ox 97 05/30/18 14:00 - Labs Result Diagrams: 05/31/18 07:00 05/31/18 07:00 Labs: Laboratory Results - last 24 hr 05/30/18 05/30/18 05/30/18 00:24 01:30 02:45 WBC 9.9 RBC 4.87 Hgb 13.3 Hct 39.7 MCV 81.5 MCH 27.3 MCHC 33.5 RDW 16.8 H Plt Count 231 MPV 11.5 H Neut % (Auto) 63.1 Lymph % (Auto) 24.9 [place] % (Auto) 9.9 H Eos % (Auto) 1.9 Baso % (Auto) 0.2 Lymph # (Auto) 2.5 [place] # (Auto) 1.0 H Eos # (Auto) 0.2 Baso # (Auto) 0.02 Absolute Neuts (auto) 6.21 Sodium 142 Potassium 4.5 Chloride 108 H Carbon Dioxide 27 Anion Gap 12 BUN 13 Creatinine 0.7 Est GFR ( Amer) > 60 Est GFR (Non-Af Amer) > 60 Random Glucose 87 Calcium 9.6 Phosphorus 4.2 Magnesium 1.9 Total Bilirubin 0.5 AST 32 ALT 40 Alkaline Phosphatase 103 Lactate Dehydrogenase 520 Total Creatine Kinase 76 Troponin I < 0.01 Total Protein 8.1 Albumin 4.5 Globulin 3.6 Albumin/Globulin Ratio 1.2 Lipase 275 Urine Color Dark yellow Urine Appearance Cloudy Urine pH 6.0 Ur Specific [place] 1.025 Urine Protein Trace H Urine Glucose (UA) Negative Urine Ketones Negative Urine Blood Large H Urine Nitrate Negative Urine Bilirubin Negative Urine Urobilinogen 0.2 Ur Leukocyte Esterase Negative Urine RBC Tntc H Urine WBC None Ur Epithelial Cells 6 - 8 H Urine Bacteria Large Urine Other Mucus Assessment & Plan - Assessment and Plan (Free Text) Assessment: Sebastian Mancera is a 37F w/ hx of Lap yady, Choledocolithiaisis s/p ERCP and biliary stent, Hx ovarian cysts/fibroid s/p cyst removal (2016) who presents to the ER with complaints of abd pain. Abd pain etiology unclear Acute on chronic constipation CBD stent, placed Apr 2017 hx of ex lap Plan: -continue lactulose and enema for BM -can consider 1/2 golytly prep -can also relistor sq x1 -minimal narcotic use -CT Abd: revealed sig/mod stool retention especially in the right colon -no plan to remove CBD stent at this time, can be followed up by oupt GI for stent removal D/W Dr. Schumacher <Vazquez Schumacher Y - Last Filed: 05/31/18 11:12> Meds - Medications Medications: Current Medications Morphine Sulfate (Morphine) 1 mg IVP Q3H PRN PRN Reason: Pain, severe (8-10) Last Admin: 05/31/18 01:53 Dose: 1 mg Ondansetron HCl (Zofran Inj) 4 mg IVP Q6H PRN PRN Reason: Nausea/Vomiting Last Admin: 05/31/18 09:21 Dose: 4 mg Pantoprazole Sodium (Protonix Inj) 40 mg IVP DAILY EMERITA Last Admin: 05/31/18 09:21 Dose: 40 mg Results - Vital Signs Recent Vital Signs: Last Vital Signs Temp 97.9 F 05/31/18 06:00 Pulse 78 05/31/18 06:00 Resp 20 05/31/18 06:00 BP 121/83 05/31/18 06:00 Pulse Ox 98 05/31/18 06:00 - Labs Result Diagrams: 05/31/18 07:00 05/31/18 07:00 Labs: Laboratory Results - last 24 hr 05/30/18 05/31/18 05/31/18 02:45 07:00 07:00 WBC 9.1 RBC 4.65 Hgb 12.3 Hct 38.0 MCV 81.7 MCH 26.5 MCHC 32.4 RDW 16.5 H Plt Count 204 MPV 10.8 Neut % (Auto) 66.1 Lymph % (Auto) 21.9 L [place] % (Auto) 8.9 H Eos % (Auto) 2.9 Baso % (Auto) 0.2 Lymph # (Auto) 2.0 [place] # (Auto) 0.8 H Eos # (Auto) 0.3 Baso # (Auto) 0.02 Absolute Neuts (auto) 6.00 Sodium 141 Potassium 3.8 Chloride 107 Carbon Dioxide 31 Anion Gap 8 L BUN 9 Creatinine 0.7 Est GFR ( Amer) > 60 Est GFR (Non-Af Amer) > 60 Random Glucose 83 Calcium 9.0 Total Bilirubin 0.7 AST 50 H D ALT 35 Alkaline Phosphatase 104 Lactate Dehydrogenase 520 Total Creatine Kinase 76 Troponin I < 0.01 Total Protein 7.8 Albumin 4.2 Globulin 3.6 Albumin/Globulin Ratio 1.2 Attending/Attestation - Attestation I have personally seen and examined this patient.: Yes I have fully participated in the care of the patient.: Yes I have reviewed all pertinent clinical information: Yes Notes (Text): 05/31/18 11:06 I have seen and examined patient with GI fellow. Agree with above documentation with the following additions. In brief, this is a 37 year old female with his tory of cholecystitis, choledocholithiasis s/p CBD [place] [facility] [place], uterine fibroid, ovarian cysts who presents to hospital with complaint of progressive abdominal pain for the past 5 days. She notes sharp epigastric pain, 10/10 intensity, radiating to back. She admits to chronic constipation without any bowel movement during this time duration and also notes nausea, vomiting. She otherwise denies fever/chills, weight loss, rectal bleeding, NSAID use, or change in bowel habits. She completed her tray of liquid diet this morning in entirety. Obesity History of cholecystectomy, choledocholithiasis s/p CBD stent placement 1 year ago [place] [facility] Abdominal pain Chronic constipation - Advance diet as tolerated - Anti-emetic therapy PRN - Maintain aggressive bowel regimen for treatment of constipation - Avoid use of narcotic pain medication as this may worsen existing situation - Continue with PPI therapy - LFTs normal, monitor - Patient requires repeat ERCP with stent removal by advanced endoscopist which can be performed electively as outpatient
[2018-05-30] MEDS ORDERED: Succinylcholine 200 mg/10 ml Inj IV ONE (18:04)
[2018-05-30] MEDS ORDERED: Etomidate 20 mg/10ml Inj IV ONE (18:04)
--- NOTE | 2018-05-30 21:41 | CARD ---
APPROVED REPORT Date of service: 05/30/2018 EKG Measurement Heart [id number] <Conclusion> Normal sinus rhythm Normal ECG
[2018-05-30 23:22] VITALS: RESP 20
[2018-05-31] MEDS: Morphine 2 mg/ml ISec IVP PRN ×2 (01:53→09:20)
[2018-05-31 07:38] LABS: BASO # 0.02 K/mm3 (0.0-2.0); BASO % 0.2 % (0.0-3.0); EOS # 0.3 (0.0-0.7); EOS % 2.9 % (1.5-5.0); HEMOGLOBIN 12.3 g/dL (12.0-16.0); LYMPH % 21.9 % (22.0-35.0); MEAN CELL VOLUME 81.7 fl (80.0-105.0); MEAN CORPUSCULAR HEMOGLOBIN 26.5 pg (25.0-35.0); MEAN CORPUSCULAR HGB CONC 32.4 g/dl (31.0-37.0); MEAN PLATELET VOLUME 10.8 fl (7.0-11.0); MONO # 0.8 (0.1-0.6); MONO % 8.9 % (1.0-6.0); RBC 4.65 10^6/uL (3.5-6.1); RED CELL DISTRIBUTION WIDTH 16.5 % (11.5-14.5); WHITE BLOOD COUNT 9.1 10^3/uL (4.5-11.0)
[2018-05-31 07:57] LABS: ALB/GLOB RATIO 1.2 (1.1-1.8); ALBUMIN 4.2 g/dL (3.0-4.8); ALT/SGPT 35 U/L (7-56); AST/SGOT 50 U/L (14-36); BLOOD UREA NITROGEN 9 mg/dL (7-21); GFR NON-AFRICAN AMERICAN > 60
[2018-05-31] MEDS ORDERED: Peg-Electrolyte Oral Soln 4L (Golytely) PO ONE (10:10)
[2018-05-31 13:19] LABS: FREE T4 1.38 ng/dL (0.78-2.19)
--- NOTE | 2018-05-31 14:49 | CP.PCM.DIS ---
<Karin Ramirez - Last Filed: 05/31/18 14:36> Provider - Provider Date of Admission: 05/30/18 08:08 Attending physician: Jack Burgos MD Primary care physician: Janusz Chaudhari MD Consults: 05/30/18 10:48 Gastroenterology Consult Routine Comment: Consulting Provider: Vazquez Schumacher Consulting Physician: Vazquez Schumacher Reason for Consult: Abdominal pain, CBD stent x 13 months 05/30/18 14:29 Physician Consult Routine Comment: Adb pain, pneumobilia Consulting Provider: Amado Maldonado Consulting Physician: Amado Maldonado Reason for Consult: Adb pain, pneumobilia Time Spent in preparation of Discharge (in minutes): 45 Diagnosis - Discharge Diagnosis (1) Abdominal pain Status: Acute Priority: Medium (2) Chronic constipation Status: Acute Priority: Medium Hospital Course - Lab Results Lab Results: Most Recent Lab Values WBC 9.1 10^3/uL (4.5-11.0) 05/31/18 07:00 RBC 4.65 10^6/uL (3.5-6.1) 05/31/18 07:00 Hgb 12.3 g/dL (12.0-16.0) 05/31/18 07:00 Hct 38.0 % (36.0-48.0) 05/31/18 07:00 MCV 81.7 fl (80.0-105.0) 05/31/18 07:00 MCH 26.5 pg (25.0-35.0) 05/31/18 07:00 MCHC 32.4 g/dl (31.0-37.0) 05/31/18 07:00 RDW 16.5 % (11.5-14.5) H 05/31/18 07:00 Plt Count 204 10^3/uL (120.0-450.0) 05/31/18 07:00 MPV 10.8 fl (7.0-11.0) 05/31/18 07:00 Neut % (Auto) 66.1 % (50.0-68.0) 05/31/18 07:00 Lymph % (Auto) 21.9 % (22.0-35.0) L 05/31/18 07:00 [place] % (Auto) 8.9 % (1.0-6.0) H 05/31/18 07:00 Eos % (Auto) 2.9 % (1.5-5.0) 05/31/18 07:00 Baso % (Auto) 0.2 % (0.0-3.0) 05/31/18 07:00 Lymph # (Auto) 2.0 (1.2-3.4) 05/31/18 07:00 [place] # (Auto) 0.8 (0.1-0.6) H 05/31/18 07:00 Eos # (Auto) 0.3 (0.0-0.7) 05/31/18 07:00 Baso # (Auto) 0.02 K/mm3 (0.0-2.0) 05/31/18 07:00 Absolute Neuts (auto) 6.00 (1.4-6.5) 05/31/18 07:00 Sodium 141 mmol/L (132-148) 05/31/18 07:00 Potassium 3.8 mmol/L (3.6-5.0) 05/31/18 07:00 Chloride 107 mmol/L (98-107) 05/31/18 07:00 Carbon Dioxide 31 mmol/L (21-33) 05/31/18 07:00 Anion Gap 8 (10-20) L 05/31/18 07:00 BUN 9 mg/dL (7-21) 05/31/18 07:00 Creatinine 0.7 mg/dl (0.7-1.2) 05/31/18 07:00 Est GFR ( Amer) > 60 05/31/18 07:00 Est GFR (Non-Af Amer) > 60 05/31/18 07:00 Random Glucose 83 mg/dL (70-110) 05/31/18 07:00 Calcium 9.0 mg/dL (8.4-10.5) 05/31/18 07:00 Phosphorus 4.2 mg/dL (2.5-4.5) 05/30/18 02:45 Magnesium 1.9 mg/dL (1.7-2.2) 05/30/18 02:45 Total Bilirubin 0.7 mg/dL (0.2-1.3) 05/31/18 07:00 AST 50 U/L (14-36) H D 05/31/18 07:00 ALT 35 U/L (7-56) 05/31/18 07:00 Alkaline Phosphatase 104 U/L (38-126) 05/31/18 07:00 Lactate Dehydrogenase 520 U/L (333-699) 05/30/18 02:45 Total Creatine Kinase 76 U/L (35-230) 05/30/18 02:45 Troponin I < 0.01 ng/mL 05/30/18 02:45 Total Protein 7.8 g/dL (5.8-8.3) 05/31/18 07:00 Albumin 4.2 g/dL (3.0-4.8) 05/31/18 07:00 Globulin 3.6 gm/dL 05/31/18 07:00 Albumin/Globulin Ratio 1.2 (1.1-1.8) 05/31/18 07:00 Lipase 275 U/L (23-300) 05/30/18 02:45 Free T4 1.38 ng/dL (0.78-2.19) 05/31/18 12:30 TSH 3rd Generation 0.42 mIU/mL (0.46-4.68) L 05/31/18 12:30 Urine Color Dark yellow (YELLOW) 05/30/18 01:30 Urine Appearance Cloudy (CLEAR) 05/30/18 01:30 Urine pH 6.0 (4.7-8.0) 05/30/18 01:30 Ur Specific [employer] 1.025 (1.005-1.035) 05/30/18 01:30 Urine Protein Trace mg/dL (<30 mg/dL) H 05/30/18 01:30 Urine Glucose (UA) Negative mg/dL (NEGATIVE) 05/30/18 01:30 Urine Ketones Negative mg/dL (NEGATIVE) 05/30/18 01:30 Urine Blood Large (NEGATIVE) H 05/30/18 01:30 Urine Nitrate Negative (NEGATIVE) 05/30/18 01:30 Urine Bilirubin Negative (NEGATIVE) 05/30/18 01:30 Urine Urobilinogen 0.2 E.U./dL (<1 E.U./dL) 05/30/18 01:30 Ur Leukocyte Esterase Negative Nell/uL (NEGATIVE) 05/30/18 01:30 Urine RBC Tntc /hpf (0-2) H 05/30/18 01:30 Urine WBC None /hpf (0-6) 05/30/18 01:30 Ur Epithelial Cells 6 - 8 /hpf (0-5) H 05/30/18 01:30 Urine Bacteria Large /hpf (NONE) 05/30/18 01:30 Urine Other Mucus /hpf 05/30/18 01:30 - Hospital Course Hospital Course: PGY1 Discharge Summary and Hospital Course for Dr. Burgos Upon Admission: Ms Mancera, 37F, , PMH of chronic constipation, Hx gallstone cholangitis s/p lap yady with stent placement (apr 2017, [facility]), Hx ovarian cysts/fibroid s/p cyst removal (2016), presented to the ED with diffuse abdominal pain x1 day. Pain was sharp, 8/10, diffuse, most at epigastric, no radiation, no alleviating or worsening factors, associated with nausea and vomiting. Patient vomited x 6 and nausea with vomit x 1 on day of admission. Patient had no bowel movement x 5 days in the setting of chronic constipation. Patient stated she could not tolerate PO intake x1 day. For more details please refer to Patient's complete chart. Patient's vitals were stable at T 98.6. HR 108. 151/94. RR 18. 98%RA. CBC was unremarkable. CMP was unremarkable. BUN/Cre 13/0.7. AST/ALT/AP: 32/40/103. U/A was obtained: Epithelial cell 6-8. WBC none. LE/N/ neg. EKG was obtained and was NSR at [address]-segment elevations or depressions, no T-wave inversions, normal intervals. CT A/P with IV was obtained and revealed uncomplicated colonic diverticulosis, fecal retention, CBD in place, mildly dilated extrahepatic biliary tree, mild pneumobilia, uterine fibroid. This is in the setting of chronic constipation. Patient was treated with Toradol x 1, morphine 2mg, 1mg, Lactulose x 1, fleet enema, and Reglan x 1. Please see reports for more details. Patient was subsequently admitted for intractable abdominal pain and inability to tolerate PO. Patient was placed NPO, IVF were given, and patient was treated with zofran and morphine for nausea and pain respectively. Patient refused morphine; stated that only dilaudid works for her. However, dilaudid would worsen fecal impaction, thus was not administered. GI (Dr. Schumacher) was consulted and recommended Patient requires repeat ERCP with stent removal by advanced endoscopist which can be performed electively as outpatient. After lactulose and x2 enema, Patient only had a small BM. Patient's diet was advanced as tolerated. Patient could tolerate regular diet on day of discharge. 1/2 golytly prep was administered and Patient had normal bowel movement. Patient is medically optimized and clinically stable for discharge to home. Consultants agree. Patient was provided with detailed discharge instructions provided both in writing and verbally to the level of the Patient's comprehension. Patient both understands and agrees to all discharge instructions. Please see chart for details. Discharge Instructions Provided to Patient: Follow up with your primary doctor within 1-2 weeks of discharge Follow up with your specialist physician at [facility] to be scheduled for removal of your biliary duct stent Take the medications prescribed to you as directed You received 2 new medications during this hospitalization: 1. Miralax 17g Dose Packet PO Daily #1 (take 17gm by mouth daily) 2. Colace 100mg Cap PO Daily #14 (take 1 cap by mouth daily) Should your symptoms return, please go to your nearest Emergency Department immediately Patient seen and case discussed with Dr. Aubrey Ramirez PGY1 Discharge Exam - Additional Findings Additional findings: - Constitutional Appears: In Acute Distress - Head Exam Head Exam: ATRAUMATIC, NORMOCEPHALIC - Eye Exam Eye Exam: Normal appearance - ENT Exam ENT Exam: Mucous Membranes Moist, Normal Exam - Neck Exam Neck exam: Positive for: Normal Inspection - Respiratory Exam Respiratory Exam: Clear to Auscultation Bilateral, NORMAL BREATHING PATTERN. absent: Rales, Rhonchi, Wheezes, Respiratory Distress, Stridor - Cardiovascular Exam Cardiovascular Exam: REGULAR RHYTHM, +S1, +S2 - GI/Abdominal Exam GI & Abdominal Exam: Normal Bowel Sounds, Soft. absent: Diminished Bowel Sounds, Distended, Firm, Guarding, Hernia, Organomegaly, Pulsatile Mass, Rebound, Rigid - Extremities Exam Extremities exam: Positive for: normal inspection - Neurological Exam Neurological exam: Alert, Oriented x3 - Psychiatric Exam Psychiatric exam: Normal Affect, Normal Mood - Skin Skin Exam: Dry, Intact, Normal Color, Warm Discharge Plan - Discharge Medications Prescriptions: Docusate [Colace] 100 mg PO DAILY #14 cap Polyethylene Glycol 3350 [Miralax] 17 gm PO DAILY #1 bottle - Follow Up Plan Condition: STABLE Disposition: HOME/ ROUTINE Instructions: Constipation in Adults, Smoking: Not Just Harmful to Your Lungs and Heart, Acute Abdominal Pain (DC) Additional Instructions: Follow up with your primary doctor within 1-2 weeks of discharge Follow up with your specialist physician at [facility] to be scheduled for removal of your biliary duct stent Take the medications prescribed to you as directed You received 2 new medications during this hospitalization: 1. Miralax 17g Dose Packet PO Daily #1 (take 17gm by mouth daily) 2. Colace 100mg Cap PO Daily #14 (take 1 cap by mouth daily) Should your symptoms return, please go to your nearest Emergency Department immediately Referrals: Janusz Chaudhari MD [Primary Care Provider] - <Jack Burgos - Last Filed: 06/01/18 11:32> Provider - Provider Date of Admission: 05/30/18 08:08 Attending physician: Jack Burgos MD Primary care physician: Janusz Chaudhari MD Consults: 05/30/18 10:48 Gastroenterology Consult Routine Comment: Consulting Provider: Vazquez Schumacher Consulting Physician: Vazquez Schumacher Reason for Consult: Abdominal pain, CBD stent x 13 months 05/30/18 14:29 Physician Consult Routine Comment: Adb pain, pneumobilia Consulting Provider: Amado Maldonado Consulting Physician: Amado Maldonado Reason for Consult: Adb pain, pneumobilia Hospital Course - Lab Results Lab Results: Most Recent Lab Values WBC 9.1 10^3/uL (4.5-11.0) 05/31/18 07:00 RBC 4.65 10^6/uL (3.5-6.1) 05/31/18 07:00 Hgb 12.3 g/dL (12.0-16.0) 05/31/18 07:00 Hct 38.0 % (36.0-48.0) 05/31/18 07:00 MCV 81.7 fl (80.0-105.0) 05/31/18 07:00 MCH 26.5 pg (25.0-35.0) 05/31/18 07:00 MCHC 32.4 g/dl (31.0-37.0) 05/31/18 07:00 RDW 16.5 % (11.5-14.5) H 05/31/18 07:00 Plt Count 204 10^3/uL (120.0-450.0) 05/31/18 07:00 MPV 10.8 fl (7.0-11.0) 05/31/18 07:00 Neut % (Auto) 66.1 % (50.0-68.0) 05/31/18 07:00 Lymph % (Auto) 21.9 % (22.0-35.0) L 05/31/18 07:00 [place] % (Auto) 8.9 % (1.0-6.0) H 05/31/18 07:00 Eos % (Auto) 2.9 % (1.5-5.0) 05/31/18 07:00 Baso % (Auto) 0.2 % (0.0-3.0) 05/31/18 07:00 Lymph # (Auto) 2.0 (1.2-3.4) 05/31/18 07:00 [place] # (Auto) 0.8 (0.1-0.6) H 05/31/18 07:00 Eos # (Auto) 0.3 (0.0-0.7) 05/31/18 07:00 Baso # (Auto) 0.02 K/mm3 (0.0-2.0) 05/31/18 07:00 Absolute Neuts (auto) 6.00 (1.4-6.5) 05/31/18 07:00 Sodium 141 mmol/L (132-148) 05/31/18 07:00 Potassium 3.8 mmol/L (3.6-5.0) 05/31/18 07:00 Chloride 107 mmol/L (98-107) 05/31/18 07:00 Carbon Dioxide 31 mmol/L (21-33) 05/31/18 07:00 Anion Gap 8 (10-20) L 05/31/18 07:00 BUN 9 mg/dL (7-21) 05/31/18 07:00 Creatinine 0.7 mg/dl (0.7-1.2) 05/31/18 07:00 Est GFR ( Amer) > 60 05/31/18 07:00 Est GFR (Non-Af Amer) > 60 05/31/18 07:00 Random Glucose 83 mg/dL (70-110) 05/31/18 07:00 Calcium 9.0 mg/dL (8.4-10.5) 05/31/18 07:00 Phosphorus 4.2 mg/dL (2.5-4.5) 05/30/18 02:45 Magnesium 1.9 mg/dL (1.7-2.2) 05/30/18 02:45 Total Bilirubin 0.7 mg/dL (0.2-1.3) 05/31/18 07:00 AST 50 U/L (14-36) H D 05/31/18 07:00 ALT 35 U/L (7-56) 05/31/18 07:00 Alkaline Phosphatase 104 U/L (38-126) 05/31/18 07:00 Lactate Dehydrogenase 520 U/L (333-699) 05/30/18 02:45 Total Creatine Kinase 76 U/L (35-230) 05/30/18 02:45 Troponin I < 0.01 ng/mL 05/30/18 02:45 Total Protein 7.8 g/dL (5.8-8.3) 05/31/18 07:00 Albumin 4.2 g/dL (3.0-4.8) 05/31/18 07:00 Globulin 3.6 gm/dL 05/31/18 07:00 Albumin/Globulin Ratio 1.2 (1.1-1.8) 05/31/18 07:00 Lipase 275 U/L (23-300) 05/30/18 02:45 Free T4 1.38 ng/dL (0.78-2.19) 05/31/18 12:30 TSH 3rd Generation 0.42 mIU/mL (0.46-4.68) L 05/31/18 12:30 Urine Color Dark yellow (YELLOW) 05/30/18 01:30 Urine Appearance Cloudy (CLEAR) 05/30/18 01:30 Urine pH 6.0 (4.7-8.0) 05/30/18 01:30 Ur Specific [employer] 1.025 (1.005-1.035) 05/30/18 01:30 Urine Protein Trace mg/dL (<30 mg/dL) H 05/30/18 01:30 Urine Glucose (UA) Negative mg/dL (NEGATIVE) 05/30/18 01:30 Urine Ketones Negative mg/dL (NEGATIVE) 05/30/18 01:30 Urine Blood Large (NEGATIVE) H 05/30/18 01:30 Urine Nitrate Negative (NEGATIVE) 05/30/18 01:30 Urine Bilirubin Negative (NEGATIVE) 05/30/18 01:30 Urine Urobilinogen 0.2 E.U./dL (<1 E.U./dL) 05/30/18 01:30 Ur Leukocyte Esterase Negative Nell/uL (NEGATIVE) 05/30/18 01:30 Urine RBC Tntc /hpf (0-2) H 05/30/18 01:30 Urine WBC None /hpf (0-6) 05/30/18 01:30 Ur Epithelial Cells 6 - 8 /hpf (0-5) H 05/30/18 01:30 Urine Bacteria Large /hpf (NONE) 05/30/18 01:30 Urine Other Mucus /hpf 05/30/18 01:30 Attending/Attestation - Attestation I have personally seen and examined this patient.: Yes I have fully participated in the care of the patient.: Yes I have reviewed all pertinent clinical information, including history, physical exam and plan: Yes Notes (Text): 06/01/18 11:27 Medical record note made by the resident after discussion with my direction and input after the patient was personally seen and examined by me. I have reviewed the chart and agree that the record accurately reflects by personal performance of the history, physical exam, data review, and medical decision-making, in the course for the patient. I have also personally directed the plan of care. 37 years old female with PMH of chronic constipation, H/O gallstone cholangitis s/p lap yady with stent placement 13 month ago without any follow up, and hx hysterscopy for ovarian cyst removal (2017) came in for diffuse abdominal pain .LFT were normal. CT Abdomen and Pelvis showed colonic diverticulosis. Fecal retention. CBD in place. Etiology of pain is due to fecal impaction.Patient was started on Bowel regemen.Her fecal impaction has resolved.She is tolerating food.Abdominal pain has improved. TSH level is normal but T4 level is normal.Patient will need repeat Thyroid function as out patient with her PCP as T 3 is not checked here in hospital.Patient is not having hypothroidism on LABs data, and clinically does not has evidence of Hyperthyroidism. Patient will be discharged home and will follow up with PCP. Management plan was discussed in detail with patient. Education was provided.
[2018-05-31 17:50] VITALS: BP 117/81; PULSE 69; TEMP 98.6; O2SAT 99
[2018-05-31] MEDS ORDERED: POLYETHYLENE GLYCOL 3350 17 GM/Dose PACKET PO SCH (18:00)
== END 2018-05-31 18:29 | disposition home or self-care (01) ==
LOC: ED 00:01 → ERH 08:08 → 5RSO 10:10
PROVIDERS: ADMIT Internal Medicine; ATTEND Internal Medicine
DX: K56.41 Fecal impaction (principal); D25.9 Leiomyoma of uterus, unspecified; E66.9 Obesity, unspecified; Z68.31 Body mass index [BMI] 31.0-31.9, adult; K57.30 Diverticulosis of large intestine without perforation or abscess without bleeding
CPT/HCPCS: 36415; 74177; 80053; 81001; 81025; 82550; 83615; 83690; 83735; 84100; 84439; 84443; 84484; 85025; 93005; 96374; 99284; C9113; G0378; J1170; J1885; J2270; J2405; J2765; J7030; Q9967